=== PATIENT | male | born 1995 | race African-American/Black ===

== ENCOUNTER 2016-06-28 14:17 | Emergency (ER) | payer MEDICAID ==
[~2016-06-28] VITALS: Ht 175.3 cm; Wt 63.0 kg
[2016-06-28 14:24] VITALS: BP 117/70
[2016-06-28 14:30] VITALS: BP 117/70
[2016-06-28] MEDS ORDERED: NUEDEXTA 20-101 EAC1 PO (14:31)
[2016-06-28] MEDS ORDERED: ZITHROMAX250 MG ORAL (14:54)
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
== END 2016-06-28 15:22 | disposition home or self-care (01) ==
LOC: EDSEX 14:17 → EMR 14:40
DX: S00.411A Abrasion of right ear, initial encounter (principal); H65.01 Acute serous otitis media, right ear; Z87.828 Personal history of other (healed) physical injury and trauma; Z86.69 Personal history of other diseases of the nervous system and sense organs; H91.91 Unspecified hearing loss, right ear; X58.XXXA Exposure to other specified factors, initial encounter; Y93.9 Activity, unspecified; Y92.9 Unspecified place or not applicable; Z88.1 Allergy status to other antibiotic agents; Z88.0 Allergy status to penicillin; Z86.59 Personal history of other mental and behavioral disorders
CPT/HCPCS: 99283